=== PATIENT | female | born 1955 | race Caucasian/White ===

== ENCOUNTER → 2016-09-27 | Outpatient (CLI) | payer BC ==
--- NOTE | 2016-09-27 19:08 | RADRPT ---
PROCEDURE: XR Knees. CLINICAL INDICATION: Bilateral knee pain. TECHNIQUE: Total of six views. Frontal, oblique, and lateral views of both knees. COMPARISON: No prior study is available for comparison. FINDINGS: There is no fracture or dislocation. The soft tissues are normal. There are mild degenerative changes of both knees with small osteophytes noted arising from the medi al and patellofemoral joint compartment margins. There is no lytic or blastic lesion. There is no radiopaque foreign body. IMPRESSION: 1. Mild degenerative changes of both knees. 2. No acute abnormality. RPTAT: QQ .Albino Solorzano MD, MD Date Time Electronically viewed and signed by .Albino Solorzano MD, on 09/27/2016 19:08 .R/
--- NOTE | 2016-10-02 07:01 | HKNOTE ---
DATE OF SERVICE: 09/28/2016 REFERRING PHYSICIAN: Dr. Esteban Alexandra MAIN COMPLAINT: Pain in the right knee. HISTORY OF MAIN COMPLAINT: The patient is a 60-year-old female who complains of pain in her right k nee which had a sudden onset about a month ago. There was no specific injury to her knee. 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 The patient noted a gradual onset of pain in her knee. Her , who is a physician, encouraged her to see me. He states that he had "a difficult time getting her to come on in." PRESENT COMPLAINTS: The right knee swells and "gets hot." Occasionally, it locks. Occasionally it is unstable. Pain varies between moderate to severe. Sometimes she has no pain. The pain is aggr avated by walking and weightbearing. She has some difficulty climbing and hiking. She has no rest pain. She can walk as far as she likes. She does not use a walking aid, but she has obtained a sof t "brace" for the knee which seems to help somewhat. She is not limping. She does not have a shoe lift. She can clip her toenails and tie her shoelaces . SPORTING ACTIVITIES: Hiking. PAST ORTHOPEDIC HISTORY: PREVIOUS ORTHOPEDIC OPERATIONS: None. PRIOR CORTISONE INTAKE: None. ALCOHOL INTAKE: Minimal. OTHER JOINT PROBLEMS: None. BLOOD TESTS FOR ARTHRITIS: None. PRIOR INJURIES TO HIPS OR KNEES: None. WORK STATUS: The patient conducts hikes in the [facility]. PAST MEDICAL HISTORY: Negative. PAST SURGICAL HISTORY: Right shoulder surgery in 2008. ALLERGIES: NONE. MEDICATIONS: Mobic 15 mg a day. PAST PRIOR INJURIES: None. FAMILY HISTORY: Noncontributory. SYSTEMS REVIEW: Entirely negative. HABITS: The patient does not smoke. She drinks an occasional alcoholic beverage. FACILITIES MAINTENANCE TECHNICIAN: Dr. Medina ([phone]). PHYSICAL EXAMINATION: GENERAL: An extremely fit-looking and youthful 60-year-old female. She looks much younger than her stated age. GAIT: The patient's gait is minimally antalgic. VITAL SIGNS: Height 5 feet 3-1/2. Weight 140 pounds. Blood pressure 130/60, temperature 98.2. HIPS: Both hips have a full range of motion without pain. RIGHT KNEE: The right knee shows normal alignment. The medial and lateral collateral ligaments and cruciate ligaments are intact. Toñito test is negative. There is no scarring, crepitus, or cysts. The patella tracks normally. There is no tenderness on the articular surface of the patella or in th e patellar groove. The Q angle is normal. It is tender over the medial joint line, 1+ effusion. Ex tension is full but painful. Flexion lacks 20 degrees. IMAGING: Plain x-rays of the right knee obtained today at the [facility] show mi nimal narrowing of the medial joint space. DISCUSSION: The patient is a 60-year-old female who has a fairly strenuous job conducting hikes in the [employer]. There has been no specific injury to her right knee, but she has the cl assic symptoms of an internal derangement of the knee. DIAGNOSIS: Probable torn meniscus of the right knee. MANAGEMENT: The patient is being referred for an MRI scan of the left knee. She will be called wit h the result of the study. Dictated By: JOHNY HARRIS/ROSE Conf#: [id number] DID#: [id number]
== END | disposition home or self-care (01) ==
LOC: HKI 14:11
DX: M25.561 Pain in right knee (principal)
CPT/HCPCS: 73562; G0463

== ENCOUNTER → 2016-10-11 | Outpatient (CLI) | payer BC ==
[~2016-10-11] MED LIST: IBUP200C11 PO
--- NOTE | 2016-10-17 22:36 | HKNOTE ---
DATE OF SERVICE: 10/11/2016 The patient comes for preoperative evaluation, scheduled to have operative arthroscopy on her right knee. She has been cleared for surgery by Dr. Wilfredo Pruitt. The actual procedure was discussed with her in further detail, and the postoperative course was discussed with her in further detail. Some of the major possible complications of arthroscopic surgery of the knee including possible infe ction were discussed with her. The patient continues to have significant symptoms. 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 She is anxious to proceed with an operation that may give her significant relief. The patient was advised that there may be a degree of arthritis in the knee and no guarantees could be made as to what percentage of improvement she would have after the surgery. Dictated By: JOHNY HARRIS/ROSE Conf#: [id number] DID#: [id number]
== END | disposition home or self-care (01) ==
LOC: HKI 13:48
DX: Z01.818 Encounter for other preprocedural examination (principal); R29.898 Other symptoms and signs involving the musculoskeletal system
CPT/HCPCS: G0463

== ENCOUNTER 2016-10-12 05:50 | Day surgery (SDC) | payer BC ==
[2016-10-11 12:24] VITALS: BMI 28.4
[~2016-10-12] VITALS: Ht 162.6 cm; Wt 69.0 kg
[2016-10-12] VITALS (14 sets, daily range): BP systolic 116–139; BP diastolic 48–80; PULSE 56–68; RESP 12–37; Ht 162.6 cm; Wt 69.0 kg
[2016-10-12] MEDS ORDERED: oxyCODONE (CR) 10 MG TAB [oxyCONTIN] PO ONE (06:30)
[2016-10-12] MEDS ORDERED: DEXAMETHASONE 4 MG/ML 1 ML INJ IV ONE (06:30)
[2016-10-12] MEDS ORDERED: LACTATED RINGER'S 1,000 ML IV* SCH (06:30)
[2016-10-12] MEDS ORDERED: ACETAMINOPHEN 1000MG/100ML IV 100 ML IVPB ONE (06:30)
[2016-10-12] MEDS ORDERED: VANCOMYCIN 1 GM (PMX) 250 ML IVPB ONE (06:30)
[2016-10-12] MEDS ORDERED: LANSOPRAZOLE 30 MG CAP PO ONE (06:30)
[2016-10-12] MEDS ORDERED: ONDANSETRON 4 MG INJ IV ONE (06:30)
[2016-10-12] MEDS ORDERED: CELECOXIB 200 MG CAP PO ONE (06:30)
--- NOTE | 2016-10-12 07:06 | HPN ---
Date/Time of Note Date/Time of Note DATE: 10/12/16 TIME: 07:06 Interval H&P Admission Note Pt. seen H&P reviewed: No system changes AJITH FLEMING PA-C Oct 12, 2016 07:06
[2016-10-12] MEDS ORDERED: IBUP200C11 PO (07:11)
[2016-10-12] MEDS ORDERED: BUPIVACAINE 0.25%/EPI (SDV) 30 ML INJ ONE (07:41)
[2016-10-12] MEDS ORDERED: ROPIVACAINE 0.5 % 30 ML VIAL ONE ×2 (07:41→10:01)
[2016-10-12] MEDS ORDERED: morphine SULFATE/PF (10 MG/10 ML) INJ ONE (07:41)
[2016-10-12] MEDS ORDERED: KETOROLAC 30 MG INJ ONE ×2 (07:42→08:47)
[2016-10-12] MEDS ORDERED: MIDAZOLAM 1 MG/ML 2 ML INJ ONE (07:45)
[2016-10-12] MEDS ORDERED: CEFAZOLIN 1 GM INJ ONE (07:45)
[2016-10-12] MEDS ORDERED: FENTAnyl 50 MCG/ML VIAL ONE (07:45)
[2016-10-12] MEDS ORDERED: PROPOFOL 20 ML ONE (07:45)
[2016-10-12] MEDS ORDERED: ONDANSETRON 4 MG INJ ONE (08:47)
[2016-10-12] MEDS ORDERED: METOCLOPRAMIDE 10 MG INJ ONE (08:47)
[2016-10-12] MEDS ORDERED: DEXAMETHASONE 4 MG/ML 1 ML INJ ONE (08:48)
[2016-10-12] MEDS ORDERED: EPHEDrine SULFATE 50 MG/5 ML SYG IV PRN (09:00)
[2016-10-12] MEDS ORDERED: MEPERIDINE 25 MG INJ IV PRN (09:00)
[2016-10-12] MEDS ORDERED: DIPHENHYDRAMINE 50 MG INJ IV PRN (09:00)
[2016-10-12] MEDS ORDERED: HYDROmorphONE (0.2 MG/ML) 10ML SYG IV PRN ×3 (09:00)
[2016-10-12] MEDS ORDERED: FENTAnyl 50 MCG/ML VIAL IV PRN ×3 (09:00)
[2016-10-12] MEDS ORDERED: LABETALOL HCL 20MG INJ IV PRN (09:00)
[2016-10-12] MEDS ORDERED: ONDANSETRON 4 MG INJ IV PRN ×2 (09:00→10:30)
[2016-10-12] MEDS ORDERED: HYDROCODONE/APAP (5/325) TAB PO PRN (10:30)
[2016-10-12] MEDS ORDERED: HYDROCODONE/APAP (10/325) TAB PO PRN (10:30)
[2016-10-12] MEDS ORDERED: ACETAMINOPHEN 1000MG/100ML IV 100 ML IVPB SCH (10:30)
--- NOTE | 2016-10-12 13:42 | OPR ---
DATE OF OPERATION: 10/12/2016 SURGEON: Geronimo Orourke MD GENERAL FORECASTER: KISHA Bush ANESTHESIOLOGIST: ____ PREOPERATIVE DIAGNOSIS: Torn medial and lateral meniscus of the right knee. POSTOPERATIVE DIAGNOSES: 1. Compound tears of the posterior third of the medial meniscus. 2. Compound tears and laceration of the entire lateral meniscus. 3. Grade I degenerative changes of the patellofemoral joint. 4. Articular erosive changes on the medial femoral condyle without erosion down to the subarticular bone. 5. Marked softening of the articular cartilage of the medial tibial plateau. 6. The cruciate ligaments were intact. 7. The lateral meniscus showed extensive tearing throughout its substance and throughout its entire length. The tears were horizontal cleavage as well as radial tears. The articular cartilage of th e lateral tibial plateau was markedly degenerated. The cartilage was almost completely absent in sm all areas over the weightbearing surface. Similar changes, but to a lesser degree, were noted over the lateral femoral condyle. DESCRIPTION OF PROCEDURE: Under general anesthetic, the right leg was prepared and draped in the [facility] sterile fashion. Standard inferomedial and inferolateral portals were used. The tourniquet was intermittently elevated, and the total tourniquet time was probably less than about 15 minutes. Th e knee was systematically inspected and the above findings were noted. Using a variety of basket forceps and motorized intraarticular shaver, a partial medial meniscectomy was performed. The remaining meniscus was balanced and stable. The camera was now moved into the lateral compartment where the lateral meniscus was removed piece by piece. hoping to leave behind a significant portion, but unfortunately as we went along there were deeper tears that were not immedi ately visible and we ended up with a subtotal lateral meniscectomy. The cruciate ligaments were int act and ____. At the end of the procedure, the wound was copiously irrigated to remove all contained fragments. T he knee was copiously irrigated to remove all contained fragments. Bleeding points were cauterized. The edge of the capsule adjacent to the removed meniscus was now injected with Toradol and Dilaudi d. The wounds were now closed using interrupted nylon. The usual sterile dressings were applied. A compression dressing were applied. There were no compl ications as far as is known. Dictated By: GERONIMO HARRIS/ROSE Conf#: [id number] DID#: [id number]
== END 2016-10-12 13:15 | disposition home or self-care (01) ==
LOC: SDS 05:50
DX: M23.221 Derangement of posterior horn of medial meniscus due to old tear or injury, right knee (principal); M23.200 Derangement of unspecified lateral meniscus due to old tear or injury, right knee
CPT/HCPCS: 29880; J0131; J1100; J1170; J1885; J2250; J2274; J2405; J2765; J2795; J3010; J3370; J7120; J0690

== ENCOUNTER → 2016-10-16 | Outpatient (CLI) | payer BC ==
--- NOTE | 2016-10-16 19:41 | HKNOTE ---
DATE OF SERVICE: 10/16/2016 The patient comes in for a checkup on her left knee. She had arthroscopy on 10/12/16 and she has ac tually made quite a good recovery, but she still has some pain and she is "hobbling around." She co mes in with her mother. On physical examination, temperature is 98.7. The wounds are clean and healing well. Knee extensio n lacks 2 degrees, flexion is to 110 degrees. The actual intraoperative photographs were shown to the patient. We spent considerable time discuss ing the arthritic changes encountered. 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 The patient will start a course of physical therapy and she will be seen again in a week's time for reevaluation. Dictated By: JOHNY HARRIS/ROSE Conf#: [id number] DID#: [id number]
== END | disposition home or self-care (01) ==
LOC: HKI 15:02
DX: Z47.89 Encounter for other orthopedic aftercare (principal); M25.561 Pain in right knee

== ENCOUNTER → 2016-10-23 | Outpatient (CLI) | payer BC ==
--- NOTE | 2016-10-23 16:13 | PN ---
Date/Time of Note Date/Time of Note DATE: 10/23/16 TIME: 16:10 Outpatient Progress Note Chief Complaint 10 day postop status post right knee arthroscopic surgery. HPI 60-year-old female presents today for postoperative appointment status post partial medial and lateral meniscectomy. Patient continues with mild to moderate pain going as high as 5/10 on the pain scale. Pain is usually with weightbearing. Denies any fall since she was last seen. Continues to use 1 crutch for assisted ambulation. Denies any chest pain/tightness, shortness of breath or calf pain. Review of Systems Const: No Fever, no chills, no Fatigue, normal appetite, no diaphoresis. Resp: No SOB, no wheezing, no chest pain. CV: No chest pain, no palpitaions, no VELAZQUEZ. Physical Exam Height 5 foot 3 inches. Weight 148 pounds. General Appearance: well-developed, well-nourished, in no acute distress. Right knee: Wound site is clean dry and intact. No signs of infection and healing well. No tenderness to palpation on exam today. Patient is able to fully extend with flexion up to 120. Stiffness with range of motion. 4+/5 strength with resistance on flexion and extension. Limping gait. No calf pain. Allergies Coded Allergies: morphine (Verified Allergy, Unknown, ITCHING, 10/11/16) Assessment/Plan * Suture removal performed today. Steri-Strips applied. * Prescription for outpatient physical therapy provided today. * At home exercises discussed today. * Follow-up as needed. Should patient express any complications, she may call in for repeat evaluation. Medications Home Meds Reported Medications Ibuprofen* (Advil*) 200 Mg Capsule, 400 MG PO Q6H Y for PAIN, CAP 10/12/16 AJITH FLEMING PA-C Oct 23, 2016 16:13
== END | disposition home or self-care (01) ==
LOC: HKI 14:56
DX: Z47.89 Encounter for other orthopedic aftercare (principal); S83.281D Other tear of lateral meniscus, current injury, right knee, subsequent encounter; S83.241D Other tear of medial meniscus, current injury, right knee, subsequent encounter

== ENCOUNTER → 2016-12-04 | Outpatient (CLI) | payer BC ==
--- NOTE | 2016-12-04 18:59 | HKNOTE ---
DATE OF SERVICE: 12/04/2016 SUBJECTIVE: The patient continues to complain of pain and swelling in her right knee. The pain rodriguez s become worse since she had some aggressive physical therapy with the force plate. She feels the physical therapist may have been too aggressive. She had the operative arthroscopy on her knee on 10/12/2016. PHYSICAL EXAMINATION: The wounds are completely healed. There is no external sign of infection. E xtension of the knee lacks 5 degrees, flexion is to 100 degrees. Marked pain on attempting to excee d that range of motion. The intraoperative report and photographs were reviewed. The patient predominantly has osteoarthrit is of the lateral compartment of the knee. She comes in with her and we spent some time discussing the fact that she is probably a cand idate for a unicompartmental knee replacement. We spent some time discussing the MAKOplasty type of knee replacement. Numerous questions were aske d and answered. Under sterile conditions, she was given an injection of 2 mL of Kenalog and 4 mL of 2% lidocaine int o the knee. I will make some inquiries for her about the MAKOplasty type of treatment and will then get back to her again. Dictated By: JOHNY HARRIS/ROSE Conf#: [id number] DID#: [id number]
== END | disposition home or self-care (01) ==
LOC: HKI 16:33
DX: M25.561 Pain in right knee (principal); R22.41 Localized swelling, mass and lump, right lower limb
CPT/HCPCS: 20610